=== PATIENT | male | born 1985 | race American Indian/Alaskan Native ===

== ENCOUNTER 2021-03-07 13:00 | Inpatient (IN) | payer SELFPAY ==
--- NOTE | 2021-03-07 14:54 | Event Note ---
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 -- this was last week. He comes in today to see if bp is down so he can work. He did not see pcp No hx HTN pmh none psh none rx none cig smoker He does not know mom/dad med history He denies cp or sob. bp right 237/142 (172) and left 227/142 (181) This initial assessment/diagnostic orders/clinical plan/treatment(s) is/are subject to change based on patients health status, clinical progression and re- assessment by fellow clinical providers in the ED. Further treatment and workup at subsequent clinical providers discretion. Patient/guardian urged not to elope from the ED as their condition may be serious if not clinically assessed and managed. Initial orders include: ro kidney dysfunction/end organ disease
--- NOTE | 2021-03-07 15:36 | XRay Report ---
CHEST 2 VIEWS INDICATION / CLINICAL INFORMATION: Hypertension. COMPARISON: None available. FINDINGS: SUPPORT DEVICES: None. HEART / MEDIASTINUM: No significant abnormality. LUNGS / PLEURA: No significant pulmonary or pleural abnormality. No pneumothorax. ADDITIONAL FINDINGS: No significant additional findings. IMPRESSION: 1. No acute findings. Signer Name: Aman Romo MD Signed: 03/07/2021 3:32 PM Workstation Name: [id number]
[2021-03-07 15:51] LABS: Basophils # (Auto) 0.1 K/mm3 (0.0-0.1); Basophils % (Auto) 0.7 % (0.0-1.8); Eosinophils # (Auto) 0.4 K/mm3 (0.0-0.4); Eosinophils % (Auto) 3.6 % (0.0-4.3); Lymphocytes # (Auto) 2.9 K/mm3 (1.2-5.4); Lymphocytes % (Auto) 27.4 % (13.4-35.0); Mean Corpuscular HGB Conc 33 % (32-34); Mean Corpuscular Volume 91 fl (84-94); Monocytes # (Auto) 0.8 K/mm3 (0.0-0.8); Monocytes % (Auto) 7.8 % (0.0-7.3); Platelet Count 205 K/mm3 (140-440); Red Blood Count 6.64 M/mm3 (3.65-5.03); Red Cell Distribution Width 14.7 % (13.2-15.2)
[2021-03-07 16:00] LABS: Hematocrit 60.2 % (35.5-45.6)
[2021-03-07 16:13] LABS: Albumin 4.2 g/dL (3.9-5); Calcium 9.7 mg/dL (8.4-10.2)
[2021-03-07] MEDS ORDERED: SODIUM CHLORIDE 0.9% 1000 ML 1,000 ML IV ONE (16:28)
[2021-03-07] MEDS ORDERED: niCARdipine DRIP 40 MG/200 ML BAG IV SCH (16:40)
[2021-03-07 17:14] LABS: INR 1.02 (0.87-1.13)
[2021-03-07 17:15] LABS: Partial Thromboplastin Time 29.6 Sec. (24.2-36.6)
[2021-03-07 17:21] LABS: Alanine Aminotransferase 18 units/L (7-56); Albumin 4.6 g/dL (3.9-5)
[2021-03-07 17:22] LABS: Bilirubin,Direct < 0.2 mg/dL (0-0.2)
--- NOTE | 2021-03-07 17:55 | Emergency Department Report ---
HPI - General Chief Complaint: High BP Time Seen by Provider: 03/07/21 14:51 - HPI HPI: 35-year-old male with no known past medical history presents today at the request of a medical provider that he saw 3 days ago due to significantly elevated blood pressure. The patient states that he was trying to apply for a new job and had to have a drug screen and medical evaluation. 3 days ago when he had his medical evaluation he was noted to have a severely high blood pressure (patient does not remember the values) but he was told he could not be medically cleared and that he needed to go to the emergency room given the degree of his elevated blood pressure. He says he had to take care of some things before coming but he came today for further evaluation of his elevated blood pressure. He denies experiencing any new physical symptoms or complaints whatsoever. He denies any recent headaches, vision change, fever, neck pain/stiffness, chest pain, shortness of breath, cough, abdominal pain, nausea/vomiting, dysuria, focal weakness, sensory changes, or any other complaints. ED Past Medical Hx - Past Medical History Previous Medical History?: No - Surgical History Past Surgical History?: No - Social History Smoking Status: Never Smoker Substance Use Type: Alcohol ED Review of Systems ROS: Stated complaint: BLOOD PRESSURE CHECK Other details as noted in HPI Constitutional: denies: chills, fever Eyes: denies: eye pain, vision change ENT: denies: throat pain, congestion Respiratory: denies: cough, shortness of breath Cardiovascular: denies: chest pain, palpitations, edema, syncope Endocrine: denies: excessive sweating, flushing, increased hunger, increased thirst Gastrointestinal: denies: abdominal pain, nausea, vomiting, diarrhea Genitourinary: denies: dysuria, frequency Musculoskeletal: denies: back pain, joint swelling Skin: denies: rash, lesions Neurological: denies: headache, weakness, numbness, paresthesias Hematological/Lymphatic: denies: easy bleeding, easy bruising Physical Exam - Physical Exam Vital Signs: Vital Signs 03/07/21 03/07/21 03/07/21 14:50 16:28 16:44 Temperature 98.1 F Pulse Rate 78 80 Respiratory 16 19 Rate Blood Pressure 234/158 186/118 Blood Pressure 227/142 [Right] O2 Sat by Pulse 98 97 98 Oximetry 09/03/07/21 03/07/21 16:46 16:55 17:00 Temperature Pulse Rate 77 Respiratory 18 17 Rate Blood Pressure 178/128 Blood Pressure [Right] O2 Sat by Pulse 94 98 96 Oximetry 03/07/21 03/07/21 17:16 17:30 Temperature Pulse Rate 91 H Respiratory 13 Rate Blood Pressure 178/128 179/119 Blood Pressure [Right] O2 Sat by Pulse 98 96 Oximetry Physical Exam: GENERAL: Well developed and well nourished. No acute distress HEAD: Normocephalic. No obvious signs of trauma. ENT: Dry mucous membranes. EYES: Extraocular movements are intact. Pupils are equal round and reactive to light bilaterally NECK: Supple. Full ROM is intact. Trachea is midline. LUNGS: Nonlabored breathing. Equal chest rise bilaterally. Clear to auscultation bilaterally. CARDIOVASCULAR: Regular rate and rhythm. No murmurs or rubs. VASCULAR: Cap refill < 2 seconds ABDOMEN: Abdomen is soft and nondistended. There is no significant tenderness, guarding or rebound. SKIN: Skin is warm and dry NEURO: Patient is awake, alert, and oriented. tip cutter II-XII grossly intact. No focal deficits. Normal motor and sensory exam throughout. Normal speech. MUSCULOSKELETAL: No obvious deformities. No significant tenderness. Normal ROM throughout. BACK/SPINE: No midline tenderness or step-offs of the C/T/L spine. No costo vertebral angle tenderness. ED Course Vital Signs 03/07/21 03/07/21 03/07/21 14:50 16:28 16:44 Temperature 98.1 F Pulse Rate 78 80 Respiratory 16 19 Rate Blood Pressure 234/158 186/118 Blood Pressure 227/142 [Right] O2 Sat by Pulse 98 97 98 Oximetry 03/07/21 03/07/21 03/07/21 16:46 16:55 17:00 Temperature Pulse Rate 77 Respiratory 18 17 Rate Blood Pressure 178/128 Blood Pressure [Right] O2 Sat by Pulse 94 98 96 Oximetry 03/07/21 03/07/21 17:16 17:30 Temperature Pulse Rate 91 H Respiratory 13 Rate Blood Pressure 178/128 179/119 Blood Pressure [Right] O2 Sat by Pulse 98 96 Oximetry ED Medical Decision Making - Lab Data Result diagrams: 03/08/21 04:29 03/08/21 04:29 Lab Results 03/07/21 03/07/2121 Range/Units 15:06 15:06 16:39 WBC 10.7 (4.5-11.0) K/mm3 RBC 6.64 H (3.65-5.03) M/mm3 Hgb 20.0 H (11.8-15.2) gm/dl Hct 60.2 H* (35.5-45.6) % MCV 91 (84-94) fl MCH 30 (28-32) pg MCHC 33 (32-34) % RDW 14.7 (13.2-15.2) % Plt Count 205 (140-440) K/mm3 Lymph % (Auto) 27.4 (13.4-35.0) % [place] % (Auto) 7.8 H (0.0-7.3) % Eos % (Auto) 3.6 (0.0-4.3) % Baso % (Auto) 0.7 (0.0-1.8) % Lymph # (Auto) 2.9 (1.2-5.4) K/mm3 [place] # (Auto) 0.8 (0.0-0.8) K/mm3 Eos # (Auto) 0.4 (0.0-0.4) K/mm3 Baso # (Auto) 0.1 (0.0-0.1) K/mm3 Seg Neutrophils % 60.5 (40.0-70.0) % Seg Neutrophils # 6.5 (1.8-7.7) K/mm3 PT (12.2-14.9) Sec. INR (0.87-1.13) APTT (24.2-36.6) Sec. Sodium 140 (137-145) mmol/L Potassium 4.0 (3.6-5.0) mmol/L Chloride 100.0 (98-107) mmol/L Carbon Dioxide 29 (22-30) mmol/L Anion Gap 15 mmol/L BUN 19 (9-20) mg/dL Creatinine 1.7 H (0.8-1.3) mg/dL Estimated GFR 56 ml/min BUN/Creatinine Ratio 11 % Glucose 103 H (75-100) mg/dL Calcium 9.7 (8.4-10.2) mg/dL Magnesium (1.7-2.3) mg/dL Total Bilirubin 0.40 0.40 (0.1-1.2) mg/dL Direct Bilirubin < 0.2 (0-0.2) mg/dL Indirect Bilirubin 0.2 mg/dL AST 19 17 (5-40) units/L ALT 17 18 (7-56) units/L Alkaline Phosphatase 97 103 (35-129) units/L Troponin T (0.00-0.029) ng/mL NT-Pro-B Natriuret Pep (0-450) pg/mL Total Protein 7.6 7.2 (6.3-8.2) g/dL Albumin 4.2 4.6 (3.9-5) g/dL Albumin/Globulin Ratio 1.2 1.8 % Urine Color (Yellow) Urine Turbidity (Clear) Urine pH (5.0-7.0) Ur Specific [place] (1.003-1.030) Urine Protein (Negative) mg/dL Urine Glucose (UA) (Negative) mg/dL Urine Ketones (Negative) mg/dL Urine Blood (Negative) Urine Nitrite (Negative) Urine Bilirubin (Negative) Urine Urobilinogen (<2.0) mg/dL Ur Leukocyte Esterase (Negative) Urine WBC (Auto) (0.0-6.0) /HPF Urine RBC (Auto) (0.0-6.0) /HPF U Epithel Cells (Auto) (0-13.0) /HPF Blood Type Antibody Screen 03/07/21 03/07/21 03/07/21 Range/Units 16:39 16:39 16:39 WBC (4.5-11.0) K/mm3 RBC (3.65-5.03) M/mm3 Hgb (11.8-15.2) gm/dl Hct (35.5-45.6) % MCV (84-94) fl MCH (28-32) pg MCHC (32-34) % RDW (13.2-15.2) % Plt Count (140-440) K/mm3 Lymph % (Auto) (13.4-35.0) % [place] % (Auto) (0.0-7.3) % Eos % (Auto) (0.0-4.3) % Baso % (Auto) (0.0-1.8) % Lymph # (Auto) (1.2-5.4) K/mm3 [place] # (Auto) (0.0-0.8) K/mm3 Eos # (Auto) (0.0-0.4) K/mm3 Baso # (Auto) (0.0-0.1) K/mm3 Seg Neutrophils % (40.0-70.0) % Seg Neutrophils # (1.8-7.7) K/mm3 PT 14.0 (12.2-14.9) Sec. INR 1.02 (0.87-1.13) APTT 29.6 (24.2-36.6) Sec. Sodium (137-145) mmol/L Potassium (3.6-5.0) mmol/L Chloride (98-107) mmol/L Carbon Dioxide (22-30) mmol/L Anion Gap mmol/L BUN (9-20) mg/dL Creatinine (0.8-1.3) mg/dL Estimated GFR ml/min BUN/Creatinine Ratio % Glucose (75-100) mg/dL Calcium (8.4-10.2) mg/dL Magnesium 2.20 (1.7-2.3) mg/dL Total Bilirubin (0.1-1.2) mg/dL Direct Bilirubin (0-0.2) mg/dL Indirect Bilirubin mg/dL AST (5-40) units/L ALT (7-56) units/L Alkaline Phosphatase (35-129) units/L Troponin T < 0.010 (0.00-0.029) ng/mL NT-Pro-B Natriuret Pep 19.47 (0-450) pg/mL Total Protein (6.3-8.2) g/dL Albumin (3.9-5) g/dL Albumin/Globulin Ratio % Urine Color (Yellow) Urine Turbidity (Clear) Urine pH (5.0-7.0) Ur Specific [place] (1.003-1.030) Urine Protein (Negative) mg/dL Urine Glucose (UA) (Negative) mg/dL Urine Ketones (Negative) mg/dL Urine Blood (Negative) Urine Nitrite (Negative) Urine Bilirubin (Negative) Urine Urobilinogen (<2.0) mg/dL Ur Leukocyte Esterase (Negative) Urine WBC (Auto) (0.0-6.0) /HPF Urine RBC (Auto) (0.0-6.0) /HPF U Epithel Cells (Auto) (0-13.0) /HPF Blood Type B POSITIVE Antibody Screen Negative 03/07/21 03/07/21 Range/Units 17:38 Unknown WBC (4.5-11.0) K/mm3 RBC (3.65-5.03) M/mm3 Hgb 19.0 H (11.8-15.2) gm/dl Hct 55.6 H (35.5-45.6) % MCV (84-94) fl MCH (28-32) pg MCHC (32-34) % RDW (13.2-15.2) % Plt Count (140-440) K/mm3 Lymph % (Auto) (13.4-35.0) % [place] % (Auto) (0.0-7.3) % Eos % (Auto) (0.0-4.3) % Baso % (Auto) (0.0-1.8) % Lymph # (Auto) (1.2-5.4) K/mm3 [place] # (Auto) (0.0-0.8) K/mm3 Eos # (Auto) (0.0-0.4) K/mm3 Baso # (Auto) (0.0-0.1) K/mm3 Seg Neutrophils % (40.0-70.0) % Seg Neutrophils # (1.8-7.7) K/mm3 PT (12.2-14.9) Sec. INR (0.87-1.13) APTT (24.2-36.6) Sec. Sodium (137-145) mmol/L Potassium (3.6-5.0) mmol/L Chloride (98-107) mmol/L Carbon Dioxide (22-30) mmol/L Anion Gap mmol/L BUN (9-20) mg/dL Creatinine (0.8-1.3) mg/dL Estimated GFR ml/min BUN/Creatinine Ratio % Glucose (75-100) mg/dL Calcium (8.4-10.2) mg/dL Magnesium (1.7-2.3) mg/dL Total Bilirubin (0.1-1.2) mg/dL Direct Bilirubin (0-0.2) mg/dL Indirect Bilirubin mg/dL AST (5-40) units/L ALT (7-56) units/L Alkaline Phosphatase (35-129) units/L Troponin T (0.00-0.029) ng/mL NT-Pro-B Natriuret Pep (0-450) pg/mL Total Protein (6.3-8.2) g/dL Albumin (3.9-5) g/dL Albumin/Globulin Ratio % Urine Color Straw (Yellow) Urine Turbidity Clear (Clear) Urine pH 6.0 (5.0-7.0) Ur Specific [place] 1.009 (1.003-1.030) Urine Protein 100 mg/dl (Negative) mg/dL Urine Glucose (UA) Neg (Negative) mg/dL Urine Ketones Neg (Negative) mg/dL Urine Blood Sm (Negative) Urine Nitrite Neg (Negative) Urine Bilirubin Neg (Negative) Urine Urobilinogen < 2.0 (<2.0) mg/dL Ur Leukocyte Esterase Neg (Negative) Urine WBC (Auto) 1.0 (0.0-6.0) /HPF Urine RBC (Auto) 2.0 (0.0-6.0) /HPF U Epithel Cells (Auto) < 1.0 (0-13.0) /HPF Blood Type Antibody Screen - EKG Data -: EKG Interpreted by Me - EKG Data When compared to previous EKG there are: previous EKG unavailable 03/07/21 20:03 Normal sinus rhythm. Normal axis. Normal intervals. No ectopy. There is approximately [address] elevation seen only in lead V2. There are inverted T waves noted in leads II, III, and aVF without ST depressions. - Radiology Data Radiology results: report reviewed - Medical Decision Making 35-year-old male with no past medical history presents at the advice of medical provider he saw for a medical screening exam due to significantly elevated blood pressure. Patient has no symptoms or complaints of any kind. However, on my assessment, he is noted to have severely elevated blood pressure of 234/158. The remainder of his vital signs are within normal limits. His physical exam is unremarkable. Labs were drawn before I was able to interview and examine the patient and have partially returned revealing significantly elevated hemoglobin of 20.0. All other cell lines are within normal limits. We will follow up the remainder of the labs which will include broad work-up and initiate blood pressure control with a Cardene drip given that the patient's blood pressure is at a dangerously high level. We will give 1 L of IV fluids for now The remainder of the labs have resulted and reveal elevated creatinine of 1.7 from unknown baseline which is consistent with acute kidney injury or undiagnosed CKD. Troponin and BNP are within normal limits. With this lab abnormality, the patient meets criteria for hypertensive emergency. On repeat assessment shortly after initiation of the Cardene drip, the patient's blood pressure has been reduced to the 1760s-180s systolic. He remains asymptomatic. Given the patient's hematologic abnormality and concern for possible need for further intervention such as phlebotomy/pheresis, a call was made to [facility] in order to speak with an on-call bed worker regarding possible transfer to facility capable of therapeutic phlebotomy. The patient was assessed several times and his blood pressure remains stable and he remains asymptomatic. In addition, repeat CBC was sent in case of a lab error but it reveals the patient's hemoglobin is in fact 19.5-20. Chest x-ray reveals no acute abnormalities. At 7:50 PM I spoke with Dr. Garcia of Hematology/Oncology at [facility] regarding the case, including my concern that the patient may require therapeutic phlebotomy which is unavailable at our facility. She agrees with our current management including initiation of a Cardene drip for strict blood pressure control. She stated that given that the patient is asymptomatic it is unlikely that he has a hyperviscosity syndrome, and he is unlikely to need phlebotomy/pheresis. When I expressed concern that the patient's elevated H/H may be what is causing his hypertensive emergency, she stated that elevated H/H would not cause elevated BP, but that both features are more likely manifestations of the same still to be identified disease/pathology. She states that he definitely needs admission for further work-up but does not require transfer. She recommends to hold off on giving further fluids at this time so as to not cause volume overload but to instead focus on strictly controlling the patient's blood pressure. The patient will therefore be admitted to the on- call hospitalist for further work-up and management. All this was discussed with the patient who expressed understanding and agreement with the plan of care. Critical Care Time: Yes Critical care time in (mins) excluding proc time.: 40 Critical care attestation.: If time is entered above; I have spent that time in minutes in the direct care o f this critically ill patient, excluding procedure time. Critical care time was spent in the evaluation/assessment, work-up, and management of hypertensive emergency requiring initiation of a Cardene drip as well as significantly elevated hemoglobin requiring consultation with specialist as well as frequent reevaluation and reassessment. ED Disposition Clinical Impression: MICHEAL (acute kidney injury), Hypertensive emergency, Polycythemia Disposition: 09 ADMITTED INPATIENT Is pt being admited?: Yes Condition: Serious
[2021-03-07 17:57] LABS: Hematocrit 55.6 % (35.5-45.6)
[2021-03-07 19:51] LABS: Bilirubin,Urine NEG (Negative); Blood,Urine SM (Negative); Color,Urine Straw (Yellow); Urobilinogen,Urine < 2.0 mg/dL (<2.0)
--- NOTE | 2021-03-07 22:15 | History and Physical Report ---
History of Present Illness Date of examination: 03/07/21 Date of admission: 03/07/2021 Chief complaint: Elevated Blood Pressure History of present illness: 35-year-old male with no known past medical history presents to the emergency room today after being encouraged to report to the emergency room by his primary care physician for elevated blood pressure. Patient indicates he has been trying to apply for a new job and went for screening was discovered to have had significantly elevated blood pressure. He denies any history of hypertension. There is no family history of hypertension except for diabetes mellitus in grandmother. Denies any chest pain or shortness of breath, no headache or dizziness, no diaphoresis. Denies any nausea vomiting, no abdominal pain. Denies any fever or chills, denies any sick contacts and no recent travel. Denies any contact with anyone with COVID-19. Patient admits that he has not been vaccinated against COVID-19. Upon arrival in the emergency room, blood pressure was significantly elevated with systolic of 227 and diastolic of 142. Patient was subsequently started on Cardene drip. Work-up in the emergency room today, labs reveals significantly elevated hemoglobin of 20 and hematocrit of 60.2. Creatinine was 1.7 Chest x-ray showed no acute findings. Past History Past Medical History: No medical history Past Surgical History: No surgical history Social history: smoking (Current daily smoker), other (Uses Marijuana) Family history: diabetes (Grand Mother) Medications and Allergies Allergies Allergy/AdvReac Type Severity Reaction Status Date / Time No Known Allergies Allergy Unverified 03/07/21 14:51 Active Meds: Active Medications Acetaminophen (Acetaminophen 325 Mg Tab) 650 mg PO Q6H PRN PRN Reason: Pain MILD(1-3)/Fever >100.5/HOLLINS Heparin Sodium (Porcine) (Heparin 5,000 Unit/1 Ml Vial) 5,000 unit SUB-Q Q8HR DEBBIE Nicardipine/Sodium Chloride (Cardene Drip 40 Mg/200 Ml) 40 mg in 200 mls @ 25 mls/hr IV TITR DEBBIE; Protocol Last Admin: 03/07/21 17:24 Dose: 5 mg/hr, 25 mls/hr Documented by: Magnesium Hydroxide (Magnesium Hydroxide (Mom) Oral Liqd Udc) 30 ml PO Q4H PRN PRN Reason: Constipation Morphine Sulfate (Morphine 2 Mg/1 Ml Inj) 2 mg IV Q4H PRN PRN Reason: Pain, Moderate (4-6) Morphine Sulfate (Morphine 4 Mg/1 Ml Inj) 4 mg IV Q4H PRN PRN Reason: Pain , Severe (7-10) Ondansetron HCl (Ondansetron 4 Mg/2 Ml Inj) 4 mg IV Q8H PRN PRN Reason: Nausea And Vomiting Sodium Chloride (Sodium Chloride 0.9% 10 Ml Flush Syringe) 10 ml IV BID DEBBIE Sodium Chloride (Sodium Chloride 0.9% 10 Ml Flush Syringe) 10 ml IV PRN PRN PRN Reason: LINE FLUSH Review of Systems Constitutional: no fever, no chills Ears, nose, mouth and throat: no nasal congestion, no sore throat Cardiovascular: no chest pain, no palpitations Respiratory: no cough, no shortness of breath Gastrointestinal: no abdominal pain, no nausea, no vomiting, no diarrhea Genitourinary Male: no dysuria, no hematuria, no flank pain Musculoskeletal: no neck pain, no low back pain Integumentary: no rash, no pruritis Neurological: no headaches, no confusion Psychiatric: no anxiety, no depression Endocrine: no polyphagia, no polydipsia, no polyuria, no nocturia Exam - Constitutional Vitals: Temp Pulse Resp BP Pulse Ox 98.2 F 96 H 15 170/103 96 03/07/21 19:40 03/07/21 19:40 03/07/21 19:40 03/07/21 19:40 03/07/21 19:40 General appearance: Present: no acute distress, well-nourished - EENT Eyes: Present: PERRL, EOM intact. Absent: scleral icterus ENT: hearing intact, clear oral mucosa, dentition normal - Neck Neck: Present: supple, normal ROM - Respiratory Respiratory effort: normal Respiratory: bilateral: CTA - Cardiovascular Rhythm: regular Heart Sounds: Present: S1 & S2. Absent: gallop, systolic murmur, diastolic murmur, rub, click - Extremities Extremities: no ischemia, pulses intact, pulses symmetrical, No edema, normal temperature, normal color, Full ROM Peripheral Pulses: within normal limits - Abdominal General gastrointestinal: Present: soft, non-tender, non-distended, normal bowel sounds. Absent: mass - Integumentary Integumentary: Present: clear, warm, dry. Absent: rash - Musculoskeletal Musculoskeletal: strength equal bilaterally - Psychiatric Psychiatric: appropriate mood/affect, intact judgment & insight, memory intact - Neurologic Neurologic: CNII-XII intact, no focal deficits, moves all extremities HEART Score - HEART Score Troponin: Troponin T < 0.010 ng/mL (0.00-0.029) 03/07/21 16:39 Results - Labs CBC & Chem 7: 03/07/21 17:38 03/07/21 15:06 Labs: Abnormal lab results 03/07/21 03/07/21 03/07/21 Range/Units 15:06 15:06 17:38 RBC 6.64 H (3.65-5.03) M/mm3 Hgb 20.0 H 19.0 H (11.8-15.2) gm/dl Hct 60.2 H* 55.6 H (35.5-45.6) % [place] % (Auto) 7.8 H (0.0-7.3) % Creatinine 1.7 H (0.8-1.3) mg/dL Glucose 103 H (75-100) mg/dL Assessment and Plan - Patient Problems (1) Hypertensive emergency Current Visit: Yes Status: Acute Plan to address problem: Patient has no known history of hypertension. He is currently placed on Cardene drip. Will monitor vital signs closely. (2) Polycythemia Current Visit: Yes Status: Acute Plan to address problem: Please consult to heme-onc for evaluation and recommendations. (3) MICHEAL (acute kidney injury) Current Visit: Yes Status: Acute Plan to address problem: Baseline creatinine is unknown. We will place consult to nephrology for evaluation. (4) DVT prophylaxis Current Visit: Yes Status: Acute Plan to address problem: Patient placed on subcutaneous heparin. (5) Full code status Current Visit: Yes Status: Acute Plan to address problem: Patient is full code.
[2021-03-07] MEDS ORDERED: MORPHINE 4 MG/1 ML INJ IV PRN (22:30)
[2021-03-07] MEDS ORDERED: MAGNESIUM HYDROXIDE (MOM) ORAL LIQD UDC PO PRN (22:30)
[2021-03-07] MEDS ORDERED: ACETAMINOPHEN 325 MG TAB PO PRN (22:30)
[2021-03-07] MEDS ORDERED: MORPHINE 2 MG/1 ML INJ IV PRN (22:30)
[2021-03-07] MEDS ORDERED: ONDANSETRON 4 MG/2 ML INJ IV PRN (22:30)
[2021-03-08 05:01] LABS: Basophils # (Auto) 0.1 K/mm3 (0.0-0.1); Basophils % (Auto) 0.6 % (0.0-1.8); Eosinophils # (Auto) 0.4 K/mm3 (0.0-0.4); Eosinophils % (Auto) 2.8 % (0.0-4.3); Hematocrit 56.6 % (35.5-45.6); Hemoglobin 18.8 gm/dl (11.8-15.2); Lymphocytes # (Auto) 2.6 K/mm3 (1.2-5.4); Lymphocytes % (Auto) 20.2 % (13.4-35.0); Mean Corpuscular HGB Conc 33 % (32-34); Mean Corpuscular Volume 90 fl (84-94); Monocytes # (Auto) 0.9 K/mm3 (0.0-0.8); Monocytes % (Auto) 7.2 % (0.0-7.3); Platelet Count 192 K/mm3 (140-440); Red Blood Count 6.29 M/mm3 (3.65-5.03); Red Cell Distribution Width 14.7 % (13.2-15.2)
[2021-03-08 05:14] LABS: INR 1.07 (0.87-1.13)
[2021-03-08 05:21] LABS: BUN/Creatinine Ratio 10; Blood Urea Nitrogen 16 mg/dL (9-20); Calcium 9.5 mg/dL (8.4-10.2); Hemolysis Index 10
[2021-03-08] MEDS: HEPARIN 5,000 UNIT/1 ML VIAL SUB-Q SCH ×3 (06:45→21:38)
[2021-03-08] MEDS ORDERED: NIFEdipine XL 30 MG TAB PO SCH ×2 (10:00)
--- NOTE | 2021-03-08 10:05 | Hem/Onc Consultation ---
History of Present Illness - Reason for Consult Consult date: 03/08/21 polycythemia - History of Present Illness Heme televisit consult CPT: 64446 Dx: polycythemia This is a 35yo male in with complaints of elevated blood pressure during a routine physical exam Currently works as a fork p d driver Pt denies any medical history Doesn't know if he's had high blood pressure in the past Denies covid infection, or covid vaccination No family history, except diabetes in grandmother + marijuana smoker occasionally Elevated hgb and hematocrit on admission Hypertensive emergency on cardene drip --continues with high blood pressure DATA REVIEWED BELOW WBC 12 Hgb 18.8 Hct 56.6 Plt 192 IMP: 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 Hypertension could also be related to polcythemia REC/PLAN: Labs to include jak2 mutation and epo Frequent lab draws (phlebotomy) to decrease h/h, since therapeautic phlebotomy unavailable Recommend outpatient sleep study to assess for sleep apnea Laboratory Last Values WBC 12.9 K/mm3 (4.5-11.0) H 03/08/21 04:29 RBC 6.29 M/mm3 (3.65-5.03) H 03/08/21 04:29 Hgb 18.8 gm/dl (11.8-15.2) H 03/08/21 04:29 Hct 56.6 % (35.5-45.6) H 03/08/21 04:29 MCV 90 fl (84-94) 03/08/21 04:29 MCH 30 pg (28-32) 03/08/21 04:29 MCHC 33 % (32-34) 03/08/21 04:29 RDW 14.7 % (13.2-15.2) 03/08/21 04:29 Plt Count 192 K/mm3 (140-440) 03/08/21 04:29 Lymph % (Auto) 20.2 % (13.4-35.0) 03/08/21 04:29 Jones % (Auto) 7.2 % (0.0-7.3) 03/08/21 04:29 Eos % (Auto) 2.8 % (0.0-4.3) 03/08/21 04:29 Baso % (Auto) 0.6 % (0.0-1.8) 03/08/21 04:29 Lymph # (Auto) 2.6 K/mm3 (1.2-5.4) 03/08/21 04:29 Jones # (Auto) 0.9 K/mm3 (0.0-0.8) H 03/08/21 04:29 Eos # (Auto) 0.4 K/mm3 (0.0-0.4) 03/08/21 04:29 Baso # (Auto) 0.1 K/mm3 (0.0-0.1) 03/08/21 04:29 Seg Neutrophils % 69.2 % (40.0-70.0) 03/08/21 04:29 Seg Neutrophils # 8.9 K/mm3 (1.8-7.7) H 03/08/21 04:29 PT 14.5 Sec. (12.2-14.9) 03/08/21 04:29 INR 1.07 (0.87-1.13) 03/08/21 04:29 APTT 29.6 Sec. (24.2-36.6) 03/07/21 16:39 Sodium 140 mmol/L (137-145) 03/08/21 04:29 Potassium 4.1 mmol/L (3.6-5.0) 03/08/21 04:29 Chloride 101.9 mmol/L (98-107) 03/08/21 04:29 Carbon Dioxide 31 mmol/L (22-30) H 03/08/21 04:29 Anion Gap 11 mmol/L 03/08/21 04:29 BUN 16 mg/dL (9-20) 03/08/21 04:29 Creatinine 1.6 mg/dL (0.8-1.3) H 03/08/21 04:29 Estimated GFR > 60 ml/min 03/08/21 04:29 BUN/Creatinine Ratio 10 % 03/08/21 04:29 Glucose 102 mg/dL (75-100) H 03/08/21 04:29 Calcium 9.5 mg/dL (8.4-10.2) 03/08/21 04:29 Magnesium 2.20 mg/dL (1.7-2.3) 03/07/21 16:39 Total Bilirubin 0.40 mg/dL (0.1-1.2) 03/07/21 16:39 Direct Bilirubin < 0.2 mg/dL (0-0.2) 03/07/21 16:39 Indirect Bilirubin 0.2 mg/dL 03/07/21 16:39 AST 17 units/L (5-40) 03/07/21 16:39 ALT 18 units/L (7-56) 03/07/21 16:39 Alkaline Phosphatase 103 units/L (35-129) 03/07/21 16:39 Troponin T < 0.010 ng/mL (0.00-0.029) 03/07/21 16:39 NT-Pro-B Natriuret Pep 19.47 pg/mL (0-450) 03/07/21 16:39 Total Protein 7.2 g/dL (6.3-8.2) 03/07/21 16:39 Albumin 4.6 g/dL (3.9-5) 03/07/21 16:39 Albumin/Globulin Ratio 1.8 % 03/07/21 16:39 Urine Color Straw (Yellow) 03/07/21 Unknown Urine Turbidity Clear (Clear) 03/07/21 Unknown Urine pH 6.0 (5.0-7.0) 03/07/21 Unknown Ur Specific [place] 1.009 (1.003-1.030) 03/07/21 Unknown Urine Protein 100 mg/dl mg/dL (Negative) 03/07/21 Unknown Urine Glucose (UA) Neg mg/dL (Negative) 03/07/21 Unknown Urine Ketones Neg mg/dL (Negative) 03/07/21 Unknown Urine Blood Sm (Negative) 03/07/21 Unknown Urine Nitrite Neg (Negative) 03/07/21 Unknown Urine Bilirubin Neg (Negative) 03/07/21 Unknown Urine Urobilinogen < 2.0 mg/dL (<2.0) 03/07/21 Unknown Ur Leukocyte Esterase Neg (Negative) 03/07/21 Unknown Urine WBC (Auto) 1.0 /HPF (0.0-6.0) 03/07/21 Unknown Urine RBC (Auto) 2.0 /HPF (0.0-6.0) 03/07/21 Unknown U Epithel Cells (Auto) < 1.0 /HPF (0-13.0) 03/07/21 Unknown Blood Type B POSITIVE 03/07/21 16:39 Antibody Screen Negative 03/07/21 16:39 Past History Past Medical History: No medical history Past Surgical History: No surgical history Social history: smoking (Current daily smoker), other (Uses Marijuana) Family history: diabetes (Grand Mother) Medications and Allergies Allergies Allergy/AdvReac Type Severity Reaction Status Date / Time No Known Allergies Allergy Unverified 03/07/21 14:51 Active Meds: Active Medications Acetaminophen (Acetaminophen 325 Mg Tab) 650 mg PO Q6H PRN PRN Reason: Pain MILD(1-3)/Fever >100.5/HOLLINS Heparin Sodium (Porcine) (Heparin 5,000 Unit/1 Ml Vial) 5,000 unit SUB-Q Q8HR DEBBIE Last Admin: 03/08/21 06:45 Dose: 5,000 unit Documented by: Nicardipine/Sodium Chloride (Cardene Drip 40 Mg/200 Ml) 40 mg in 200 mls @ 25 mls/hr IV TITR DEBBIE; Protocol Last Titration: 03/08/21 00:35 Dose: 0 mg/hr, 0 mls/hr Documented by: Magnesium Hydroxide (Magnesium Hydroxide (Mom) Oral Liqd Udc) 30 ml PO Q4H PRN PRN Reason: Constipation Morphine Sulfate (Morphine 2 Mg/1 Ml Inj) 2 mg IV Q4H PRN PRN Reason: Pain, Moderate (4-6) Morphine Sulfate (Morphine 4 Mg/1 Ml Inj) 4 mg IV Q4H PRN PRN Reason: Pain , Severe (7-10) Nifedipine (Nifedipine Xl 30 Mg Tab) 30 mg PO QDAY DEBBIE Ondansetron HCl (Ondansetron 4 Mg/2 Ml Inj) 4 mg IV Q8H PRN PRN Reason: Nausea And Vomiting Sodium Chloride (Sodium Chloride 0.9% 10 Ml Flush Syringe) 10 ml IV BID DEBBIE Sodium Chloride (Sodium Chloride 0.9% 10 Ml Flush Syringe) 10 ml IV PRN PRN PRN Reason: LINE FLUSH Exam - Constitutional Vitals: Last Vital Signs Temp 98 F 03/08/21 08:08 Pulse 86 03/08/21 08:08 Resp 14 03/08/21 08:12 BP 159/103 03/08/21 08:08 Pulse Ox 96 03/08/21 08:12 Results - Labs lab Results: Laboratory Results - last 24 hr 03/07/21 03/07/21 03/07/21 15:06 15:06 16:39 WBC 10.7 RBC 6.64 H Hgb 20.0 H Hct 60.2 H* MCV 91 MCH 30 MCHC 33 RDW 14.7 Plt Count 205 Lymph % (Auto) 27.4 Jones % (Auto) 7.8 H Eos % (Auto) 3.6 Baso % (Auto) 0.7 Lymph # (Auto) 2.9 [place] # (Auto) 0.8 Eos # (Auto) 0.4 Baso # (Auto) 0.1 Seg Neutrophils % 60.5 Seg Neutrophils # 6.5 PT INR APTT Sodium 140 Potassium 4.0 Chloride 100.0 Carbon Dioxide 29 Anion Gap 15 BUN 19 Creatinine 1.7 H Estimated GFR 56 BUN/Creatinine Ratio 11 Glucose 103 H Calcium 9.7 Magnesium Total Bilirubin 0.40 0.40 Direct Bilirubin < 0.2 Indirect Bilirubin 0.2 AST 19 17 ALT 17 18 Alkaline Phosphatase 97 103 Troponin T NT-Pro-B Natriuret Pep Total Protein 7.6 7.2 Albumin 4.2 4.6 Albumin/Globulin Ratio 1.2 1.8 Urine Color Urine Turbidity Urine pH Ur Specific [place] Urine Protein Urine Glucose (UA) Urine Ketones Urine Blood Urine Nitrite Urine Bilirubin Urine Urobilinogen Ur Leukocyte Esterase Urine WBC (Auto) Urine RBC (Auto) U Epithel Cells (Auto) Blood Type Antibody Screen 03/07/21 03/07/21 03/07/21 16:39 16:39 16:39 WBC RBC Hgb Hct MCV MCH MCHC RDW Plt Count Lymph % (Auto) Jones % (Auto) Eos % (Auto) Baso % (Auto) Lymph # (Auto) [place] # (Auto) Eos # (Auto) Baso # (Auto) Seg Neutrophils % Seg Neutrophils # PT 14.0 INR 1.02 APTT 29.6 Sodium Potassium Chloride Carbon Dioxide Anion Gap BUN Creatinine Estimated GFR BUN/Creatinine Ratio Glucose Calcium Magnesium 2.20 Total Bilirubin Direct Bilirubin Indirect Bilirubin AST ALT Alkaline Phosphatase Troponin T < 0.010 NT-Pro-B Natriuret Pep 19.47 Total Protein Albumin Albumin/Globulin Ratio Urine Color Urine Turbidity Urine pH Ur Specific [place] Urine Protein Urine Glucose (UA) Urine Ketones Urine Blood Urine Nitrite Urine Bilirubin Urine Urobilinogen Ur Leukocyte Esterase Urine WBC (Auto) Urine RBC (Auto) U Epithel Cells (Auto) Blood Type B POSITIVE Antibody Screen Negative 03/07/21 03/07/21 03/08/21 17:38 Unknown 04:29 WBC 12.9 H RBC 6.29 H Hgb 19.0 H 18.8 H Hct 55.6 H 56.6 H MCV 90 MCH 30 MCHC 33 RDW 14.7 Plt Count 192 Lymph % (Auto) 20.2 [place] % (Auto) 7.2 Eos % (Auto) 2.8 Baso % (Auto) 0.6 Lymph # (Auto) 2.6 [place] # (Auto) 0.9 H Eos # (Auto) 0.4 Baso # (Auto) 0.1 Seg Neutrophils % 69.2 Seg Neutrophils # 8.9 H PT INR APTT Sodium Potassium Chloride Carbon Dioxide Anion Gap BUN Creatinine Estimated GFR BUN/Creatinine Ratio Glucose Calcium Magnesium Total Bilirubin Direct Bilirubin Indirect Bilirubin AST ALT Alkaline Phosphatase Troponin T NT-Pro-B Natriuret Pep Total Protein Albumin Albumin/Globulin Ratio Urine Color Straw Urine Turbidity Clear Urine pH 6.0 Ur Specific [place] 1.009 Urine Protein 100 mg/dl Urine Glucose (UA) Neg Urine Ketones Neg Urine Blood Sm Urine Nitrite Neg Urine Bilirubin Neg Urine Urobilinogen < 2.0 Ur Leukocyte Esterase Neg Urine WBC (Auto) 1.0 Urine RBC (Auto) 2.0 U Epithel Cells (Auto) < 1.0 Blood Type Antibody Screen 03/08/21 03/08/21 04:29 04:29 WBC RBC Hgb Hct MCV MCH MCHC RDW Plt Count Lymph % (Auto) [place] % (Auto) Eos % (Auto) Baso % (Auto) Lymph # (Auto) [place] # (Auto) Eos # (Auto) Baso # (Auto) Seg Neutrophils % Seg Neutrophils # PT 14.5 INR 1.07 APTT Sodium 140 Potassium 4.1 Chloride 101.9 Carbon Dioxide 31 H Anion Gap 11 BUN 16 Creatinine 1.6 H Estimated GFR > 60 BUN/Creatinine Ratio 10 Glucose 102 H Calcium 9.5 Magnesium Total Bilirubin Direct Bilirubin Indirect Bilirubin AST ALT Alkaline Phosphatase Troponin T NT-Pro-B Natriuret Pep Total Protein Albumin Albumin/Globulin Ratio Urine Color Urine Turbidity Urine pH Ur Specific [place] Urine Protein Urine Glucose (UA) Urine Ketones Urine Blood Urine Nitrite Urine Bilirubin Urine Urobilinogen Ur Leukocyte Esterase Urine WBC (Auto) Urine RBC (Auto) U Epithel Cells (Auto) Blood Type Antibody Screen
--- NOTE | 2021-03-08 12:19 | Consultation ---
History of Present Illness - Reason for Consult Consult date: 03/08/21 chronic renal failure, accelerated hypertension Requesting physician: CONNIE SERRANO - History of Present Illness 35-year-old male with no known past medical history presents today at the request of a medical provider that he saw 3 days ago due to significantly elevated blood pressure. The patient states that he was trying to apply for a new job and had to have a drug screen and medical evaluation. 3 days ago when he had his medical evaluation he was noted to have a severely high blood pressu re (patient does not remember the values) but he was told he could not be medically cleared and that he needed to go to the emergency room given the degree of his elevated blood pressure. He says he had to take care of some things before coming but he came today for further evaluation of his elevated blood pressure. He denies experiencing any new physical symptoms or complaints whatsoever. He denies any recent headaches, vision change, fever, neck pain/stiffness, chest pain, shortness of breath, cough, abdominal pain, nausea/vomiting, dysuria, focal weakness, sensory changes, or any other c omplaints. - Past Medical History Previous Medical History?: No - Surgical History Past Surgical History?: No - Social History Smoking Status: Never Smoker Substance Use Type: Alcohol ROS: Stated complaint: BLOOD PRESSURE CHECK Other details as noted in HPI Constitutional: denies: chills, fever Eyes: denies: eye pain, vision change ENT: denies: throat pain, congestion Respiratory: denies: cough, shortness of breath Cardiovascular: denies: chest pain, palpitations, edema, syncope Endocrine: denies: excessive sweating, flushing, increased hunger, increased thirst Gastrointestinal: denies: abdominal pain, nausea, vomiting, diarrhea Genitourinary: denies: dysuria, frequency Musculoskeletal: denies: back pain, joint swelling Skin: denies: rash, lesions Neurological: denies: headache, weakness, numbness, paresthesias Hematological/Lymphatic: denies: easy bleeding, easy bruising Physical Exam: GENERAL: Well developed and well nourished. No acute distress HEAD: Normocephalic. No obvious signs of trauma. ENT: Dry mucous membranes. EYES: Extraocular movements are intact. Pupils are equal round and reactive to light bilaterally NECK: Supple. Full ROM is intact. Trachea is midline. LUNGS: Nonlabored breathing. Equal chest rise bilaterally. Clear to auscultation bilaterally. CARDIOVASCULAR: Regular rate and rhythm. No murmurs or rubs. VASCULAR: Cap refill < 2 seconds ABDOMEN: Abdomen is soft and nondistended. There is no significant tenderness, guarding or rebound. SKIN: Skin is warm and dry NEURO: Patient is awake, alert, and oriented. poly packer and heat sealer II-XII grossly intact. No focal deficits. Normal motor and sensory exam throughout. Normal speech. MUSCULOSKELETAL: No obvious deformities. No significant tenderness. Normal ROM throughout. BACK/SPINE: No midline tenderness or step-offs of the C/T/L spine. No costovertebral angle tenderness. Past History Past Medical History: No medical history Past Surgical History: No surgical history Social history: smoking (Current daily smoker), other (Uses Marijuana) Family history: diabetes (Grand Mother) Medications and Allergies Allergies Allergy/AdvReac Type Severity Reaction Status Date / Time No Known Allergies Allergy Unverified 03/07/21 14:51 Active Meds: Active Medications Acetaminophen (Acetaminophen 325 Mg Tab) 650 mg PO Q6H PRN PRN Reason: Pain MILD(1-3)/Fever >100.5/HOLLINS Heparin Sodium (Porcine) (Heparin 5,000 Unit/1 Ml Vial) 5,000 unit SUB-Q Q8HR [facility] Last Admin: 03/08/21 06:45 Dose: 5,000 unit Documented by: Nicardipine/Sodium Chloride (Cardene Drip 40 Mg/200 Ml) 40 mg in 200 mls @ 25 mls/hr IV TITR DEBBIE; Protocol Last Titration: 03/08/21 00:35 Dose: 0 mg/hr, 0 mls/hr Documented by: Magnesium Hydroxide (Magnesium Hydroxide (Mom) Oral Liqd Udc) 30 ml PO Q4H PRN PRN Reason: Constipation Morphine Sulfate (Morphine 2 Mg/1 Ml Inj) 2 mg IV Q4H PRN PRN Reason: Pain, Moderate (4-6) Morphine Sulfate (Morphine 4 Mg/1 Ml Inj) 4 mg IV Q4H PRN PRN Reason: Pain , Severe (7-10) Nifedipine (Nifedipine Xl 30 Mg Tab) 30 mg PO QDAY [facility] Last Admin: 03/08/21 11:43 Dose: 30 mg Documented by: Ondansetron HCl (Ondansetron 4 Mg/2 Ml Inj) 4 mg IV Q8H PRN PRN Reason: Nausea And Vomiting Sodium Chloride (Sodium Chloride 0.9% 10 Ml Flush Syringe) 10 ml IV BID DEBBIE Last Admin: 03/08/21 11:46 Dose: 10 ml Documented by: Sodium Chloride (Sodium Chloride 0.9% 10 Ml Flush Syringe) 10 ml IV PRN PRN PRN Reason: LINE FLUSH Exam - Vital Signs Vital signs: Vital Signs Temp Pulse Resp BP Pulse Ox 98.1 F 78 16 227/142 98 03/07/21 14:50 03/07/21 14:50 03/07/21 14:50 03/07/21 14:50 03/07/21 14:50 Results - Lab Results 03/08/21 04:29 03/08/21 04:29 Most recent lab results Calcium 9.5 mg/dL (8.4-10.2) 03/08/21 04:29 Magnesium 2.20 mg/dL (1.7-2.3) 03/07/21 16:39 Assessment and Plan Impression: * MICHEAL 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
[2021-03-08] MEDS: cloNIDine 0.1 MG TAB PO SCH ×2 (12:34→21:38)
--- NOTE | 2021-03-08 12:47 | Event Note ---
Date: 03/08/21 ICU consult placed fopr Hypertensive emergency which has now resolved. Pleaser re-consult if needed and thank you so much.
[2021-03-08] MEDS ORDERED: hydrALAZINE 20 MG/1 ML INJ IV PRN (13:02)
--- NOTE | 2021-03-08 13:05 | Progress Note ---
Assessment and Plan Assessment and plan: 35-year-old male with no significant past medical history who presented after elevated blood pressure screening for employment. Found to be in hypertensive emergency and with elevated hemoglobin/hematocrit. #Hypertensive emergency -s/p Cardene gtt -Nifedipine XR 30 mg and clonidine 0.1 mg 2 times daily daily started -As needed blood pressure medications #Hyperviscosity -H&H 18.8/56.6 -Status post IV hydration, may be secondary versus primary -Etiology unknown -Will need outpatient sleep study to assess for sleep apnea -Hematology following, recs appreciated #Acute kidney injury -creatinine 1.6 (baseline unknown) -Renal ultrasound and urine studies ordered -Nephrology consulted and recommends no further treatment at this time, will follow up outpatient in 2 weeks Disposition Plan: Continue medical management Total Time Spent with Patient (Minutes): 20 minutes History Interval history: No acute events overnight. Cardene drip stopped. Patient denies headache, chest pain, and blurred vision. Hospitalist Physical - Physical exam Narrative exam: GENERAL: Well-developed well-nourished. Lying in bed in no acute distress. HEENT: Normocephalic. Atraumatic. NECK: Supple. CHEST/LUNGS: CTAB on room air HEART/CARDIOVASCULAR: RRR. No murmur, rubs or gallops appreciated. ABDOMEN: +BS. NT/ND. SKIN: No rashes noted. NEURO: No focal motor deficit. Follows all commands and is ambulatory. EXTREMITIES: No cyanosis, clubbing or edema. PSYCH: Cooperative. - Constitutional Vitals: Temp Pulse Resp BP Pulse Ox 98 F 69 17 196/123 97 03/08/21 08:08 03/08/21 12:34 03/08/21 12:00 03/08/21 12:34 03/08/21 12:00 General appearance: Present: no acute distress, well-nourished HEART Score - HEART Score Troponin: Troponin T < 0.010 ng/mL (0.00-0.029) 03/07/21 16:39 Results - Labs CBC & Chem 7: 03/08/21 04:29 03/08/21 04:29 Labs: Laboratory Last Values WBC 12.9 K/mm3 (4.5-11.0) H 03/08/21 04:29 RBC 6.29 M/mm3 (3.65-5.03) H 03/08/21 04:29 Hgb 18.8 gm/dl (11.8-15.2) H 03/08/21 04:29 Hct 56.6 % (35.5-45.6) H 03/08/21 04:29 MCV 90 fl (84-94) 03/08/21 04:29 MCH 30 pg (28-32) 03/08/21 04:29 MCHC 33 % (32-34) 03/08/21 04:29 RDW 14.7 % (13.2-15.2) 03/08/21 04:29 Plt Count 192 K/mm3 (140-440) 03/08/21 04:29 Lymph % (Auto) 20.2 % (13.4-35.0) 03/08/21 04:29 [place] % (Auto) 7.2 % (0.0-7.3) 03/08/21 04:29 Eos % (Auto) 2.8 % (0.0-4.3) 03/08/21 04:29 Baso % (Auto) 0.6 % (0.0-1.8) 03/08/21 04:29 Lymph # (Auto) 2.6 K/mm3 (1.2-5.4) 03/08/21 04:29 [place] # (Auto) 0.9 K/mm3 (0.0-0.8) H 03/08/21 04:29 Eos # (Auto) 0.4 K/mm3 (0.0-0.4) 03/08/21 04:29 Baso # (Auto) 0.1 K/mm3 (0.0-0.1) 03/08/21 04:29 Seg Neutrophils % 69.2 % (40.0-70.0) 03/08/21 04:29 Seg Neutrophils # 8.9 K/mm3 (1.8-7.7) H 03/08/21 04:29 PT 14.5 Sec. (12.2-14.9) 03/08/21 04:29 INR 1.07 (0.87-1.13) 03/08/21 04:29 APTT 29.6 Sec. (24.2-36.6) 03/07/21 16:39 Sodium 140 mmol/L (137-145) 03/08/21 04:29 Potassium 4.1 mmol/L (3.6-5.0) 03/08/21 04:29 Chloride 101.9 mmol/L (98-107) 03/08/21 04:29 Carbon Dioxide 31 mmol/L (22-30) H 03/08/21 04:29 Anion Gap 11 mmol/L 03/08/21 04:29 BUN 16 mg/dL (9-20) 03/08/21 04:29 Creatinine 1.6 mg/dL (0.8-1.3) H 03/08/21 04:29 Estimated GFR > 60 ml/min 03/08/21 04:29 BUN/Creatinine Ratio 10 % 03/08/21 04:29 Glucose 102 mg/dL (75-100) H 03/08/21 04:29 Calcium 9.5 mg/dL (8.4-10.2) 03/08/21 04:29 Magnesium 2.20 mg/dL (1.7-2.3) 03/07/21 16:39 Total Bilirubin 0.40 mg/dL (0.1-1.2) 03/07/21 16:39 Direct Bilirubin < 0.2 mg/dL (0-0.2) 03/07/21 16:39 Indirect Bilirubin 0.2 mg/dL 03/07/21 16:39 AST 17 units/L (5-40) 03/07/21 16:39 ALT 18 units/L (7-56) 03/07/21 16:39 Alkaline Phosphatase 103 units/L (35-129) 03/07/21 16:39 Troponin T < 0.010 ng/mL (0.00-0.029) 03/07/21 16:39 NT-Pro-B Natriuret Pep 19.47 pg/mL (0-450) 03/07/21 16:39 Total Protein 7.2 g/dL (6.3-8.2) 03/07/21 16:39 Albumin 4.6 g/dL (3.9-5) 03/07/21 16:39 Albumin/Globulin Ratio 1.8 % 03/07/21 16:39 Urine Color Straw (Yellow) 03/07/21 Unknown Urine Turbidity Clear (Clear) 03/07/21 Unknown Urine pH 6.0 (5.0-7.0) 03/07/21 Unknown Ur Specific [place] 1.009 (1.003-1.030) 03/07/21 Unknown Urine Protein 100 mg/dl mg/dL (Negative) 03/07/21 Unknown Urine Glucose (UA) Neg mg/dL (Negative) 03/07/21 Unknown Urine Ketones Neg mg/dL (Negative) 03/07/21 Unknown Urine Blood Sm (Negative) 03/07/21 Unknown Urine Nitrite Neg (Negative) 03/07/21 Unknown Urine Bilirubin Neg (Negative) 03/07/21 Unknown Urine Urobilinogen < 2.0 mg/dL (<2.0) 03/07/21 Unknown Ur Leukocyte Esterase Neg (Negative) 03/07/21 Unknown Urine WBC (Auto) 1.0 /HPF (0.0-6.0) 03/07/21 Unknown Urine RBC (Auto) 2.0 /HPF (0.0-6.0) 03/07/21 Unknown U Epithel Cells (Auto) < 1.0 /HPF (0-13.0) 03/07/21 Unknown Blood Type B POSITIVE 03/07/21 16:39 Antibody Screen Negative 03/07/21 16:39 Active Medications - Current Medications Current Medications: Generic Name Dose Route Start Last Admin Trade Name Freq PRN Reason Stop Dose Admin Acetaminophen 650 mg 03/07/21 22:30 Acetaminophen 325 Mg Tab PO Q6H PRN Pain MILD(1-3)/Fever >100.5/HOLLINS Clonidine HCl 0.1 mg 03/08/21 13:00 03/08/21 12:34 Clonidine 0.1 Mg Tab PO 0.1 mg Q12HR DEBBIE Administration Heparin Sodium (Porcine) 5,000 unit 03/08/21 06:00 03/08/21 06:45 Heparin 5,000 Unit/1 Ml Vial SUB-Q 5,000 unit Q8HR DEBBIE Administration Hydralazine HCl 20 mg 03/08/21 13:02 Hydralazine 20 Mg/1 Ml Inj IV Q4HR PRN Hypertension Nicardipine/Sodium Chloride 40 mg in 200 mls @ 25 mls/hr 03/07/21 16:40 03/08/21 00:35 Cardene Drip 40 Mg/200 Ml IV 0 mg/hr TITR DEBBIE 0 mls/hr Titration Protocol 5 MG/HR Magnesium Hydroxide 30 ml 03/07/21 22:30 Magnesium Hydroxide (Mom) Oral Liqd Udc PO Q4H PRN Constipation Morphine Sulfate 2 mg 03/07/21 22:30 Morphine 2 Mg/1 Ml Inj IV Q4H PRN Pain, Moderate (4-6) Morphine Sulfate 4 mg 03/07/21 22:30 Morphine 4 Mg/1 Ml Inj IV Q4H PRN Pain , Severe (7-10) Nifedipine 30 mg 03/08/21 10:00 03/08/21 11:43 Nifedipine Xl 30 Mg Tab PO 30 mg QDAY DEBBIE Administration Ondansetron HCl 4 mg 03/07/21 22:30 Ondansetron 4 Mg/2 Ml Inj IV Q8H PRN Nausea And Vomiting Sodium Chloride 10 ml 03/08/21 10:00 03/08/21 11:46 Sodium Chloride 0.9% 10 Ml Flush Syringe IV 10 ml BID DEBBIE Administration Sodium Chloride 10 ml 03/07/21 22:30 Sodium Chloride 0.9% 10 Ml Flush Syringe IV PRN PRN LINE FLUSH Nutrition/Malnutrition Assess - Dietary Evaluation Nutrition/Malnutrition Findings: Nutrition Notes Start: 03/08/21 11:45 Freq: Status: Active Protocol: Document 03/08/21 11:45 GB (Rec: 03/08/21 11:51 GB [id number]) Nutrition Notes Need for Assessment generated from: MD Order Initial or Follow up Brief Note Current Diagnosis Hypertension Current Diet Cardiac Labs/Tests 03/08: creatinine 1.6, glucose 102 Pertinent Medications reviewed Height 5 ft 5 in Weight 85.275 kg [place] Body Weight (kg) 61.81 BMI 31.2 Intake Prior to Admission Excellent Weight change and time frame no reported weight changes Weight Status Obese Subjective/Other Information Per chart: no medical history of diagnosis, reported to hospital r/t new work physical finding high Bp Percent of energy/protein needs met: PO intake of meals 75% or greater meets 100% of minimal estimated energy needs. Burn Absent Trauma Absent GI Symptoms None Food Allergy No Skin Integrity/Comment no complications reported Current % PO Good (75-100%) Minimum of two criteria No #1 Nutrition Diagnosis Food and nutrition-related knowledge deficit Etiology consult for nutrition education As Evidenced by Signs and Symptoms admitted for High blood pressure, conuslt for nutrition therapy educaiton Is patient on ventilator? No Is Patient Ambulatory and/or Out of Bed Yes REE-([place]. Jeor-ambulatory/OOB) [ 2242.019 [id number]] Kcal/Kg value to use for calculation 20 Approximate Energy Requirements Using 1706 kcal/Kg Calculation Used for Recommendations Kcal/kg Additional Notes Protein: 0.8-1 g/kg @ 85k -85g Fluids: 1 ml/kcal or per MD Nutrition Intervention Change Diet Order: continue Nutrition Support: n/a Add Supplement/Snack (indicate name/kcal n/a /protein ) Teaching Recipient Patient Education Handouts Provided NCM: hypertension nutrition therapy printed. Pt d/c from room before handout provided. Barriers to Learning No Barriers Goal #1 PO intake of meals to continue 75% or greater during LOS Revisit per MD consult or patient Sign Off request: Additional Comments Pt d/c'd from room before handout provided.
--- NOTE | 2021-03-08 14:56 | Ultrasound Report ---
ULTRASOUND RENAL INDICATION / CLINICAL INFORMATION: MICHEAL. COMPARISON: None available. FINDINGS: RIGHT KIDNEY: Length = 11.6 cm. - Echogenicity: Increased. - Cortical Thickness: Normal. - Hydronephrosis: None. - Cyst / Mass: None. - Stones: None seen. LEFT KIDNEY: Length = 10.6 cm. - Echogenicity: Increased. - Cortical Thickness: Normal. - Hydronephrosis: None. - Cyst / Mass: None. - Stones: None seen. URINARY BLADDER: No significant abnormality. FREE FLUID: None. ADDITIONAL FINDINGS: Incidental finding of a hyperechoic solid focus within the right hepatic lobe me asuring 1.4 x 1.9 x 1.9 cm. IMPRESSION: 1. Findings consistent with medical renal disease. 2. 1.9 cm echogenic mass seen within the right hepatic lobe. This most commonly is related to a benig n hemangioma in a non cirrhotic patient without known cancer. However, multiphase CT can be considere d for further characterization. Scribed by: Bel Sanchez RDMS, RVT Scribed: 03/08/2021 12:59 PM I have reviewed the images, agree with this report, and edited this report as needed. Signer Name: Bob Lara MD Signed: 03/08/2021 2:51 PM Workstation Name: [id number]
[2021-03-08 17:54] LABS: Creatinine,Urine 341.7 mg/dL (0.1-20.0)
[2021-03-09 04:21] VITALS: BP 151/104
[2021-03-09] MEDS: HEPARIN 5,000 UNIT/1 ML VIAL SUB-Q SCH (06:05)
[2021-03-09 06:18] LABS: Hemoglobin 18.5 gm/dl (11.8-15.2); Mean Corpuscular HGB Conc 34 % (32-34); Mean Corpuscular Volume 90 fl (84-94); Platelet Count 181 K/mm3 (140-440); Red Blood Count 6.12 M/mm3 (3.65-5.03); Red Cell Distribution Width 14.6 % (13.2-15.2)
[2021-03-09 06:35] LABS: BUN/Creatinine Ratio 12; Blood Urea Nitrogen 18 mg/dL (9-20); Hemolysis Index 37
--- NOTE | 2021-03-09 09:11 | Progress Note ---
Assessment and Plan Impression: * MICHEAL on likely CKD 2/3 * Acc HTN * Polycythemia Plan: * add hydralazine, added clonidine for bp control * heme following, needs outpatient sleep study * cr stable * can follow up in office 2 weeks after discharge * will sign off Subjective Date of service: 03/09/21 Principal diagnosis: ckd 3, HTN Interval history: labs and chart reviewed no acute events noted Objective - Vital Signs Vital signs: Vital Signs - 12hr 03/08/21 03/08/21 03/09/21 22:00 22:06 04:07 Temperature 98.1 F 98.3 F Pulse Rate 105 H 97 H 83 Respiratory 20 18 18 Rate Blood Pressure 163/108 151/104 O2 Sat by Pulse 97 96 98 Oximetry - General Appearance General appearance: well-developed, well-nourished, appears stated age EENT: PERRL, mucous membranes moist Neck: no JVD, no thyromegaly, no carotid bruit, supple Respiratory: Present: Clear to Ascultation Cardiology: regular, normal heart rate, S1S2, no murmurs Gastrointestinal: Integumentary: no rash, warm and dry Musculoskeletal: no deformities, no erythema, no cyanosis, no clubbing - Lab 03/09/21 05:04 03/09/21 05:04 Most recent lab results Calcium 9.0 mg/dL (8.4-10.2) 03/09/21 05:04 Magnesium 2.20 mg/dL (1.7-2.3) 03/07/21 16:39 Urine Creatinine 341.7 mg/dL (0.1-20.0) H 03/08/21 09:27 Urine Sodium 68 mmol/L 03/08/21 09:27 Medications & Allergies - Medications Allergies/Adverse Reactions: Allergies No Known Allergies Allergy (Verified 03/08/21 18:49) Home Medications: Home Medications Medication Instructions Recorded Confirmed Last Taken Type No Known Home Medications [No 03/08/21 03/08/21 Unknown History Reported Home Medications] Active Medications: Generic Name Dose Route Start Last Admin Trade Name Freq PRN Reason Stop Dose Admin Acetaminophen 650 mg 03/07/21 22:30 Acetaminophen 325 Mg Tab PO Q6H PRN Pain MILD(1-3)/Fever >100.5/HOLLINS Clonidine HCl 0.1 mg 03/08/21 13:00 03/08/21 21:38 Clonidine 0.1 Mg Tab PO 0.1 mg Q12HR DEBBIE Administration Heparin Sodium (Porcine) 5,000 unit 03/08/21 06:00 03/09/21 06:05 Heparin 5,000 Unit/1 Ml Vial SUB-Q 5,000 unit Q8HR DEBBIE Administration Hydralazine HCl 20 mg 03/08/21 13:02 03/08/21 15:31 Hydralazine 20 Mg/1 Ml Inj IV 20 mg Q4HR PRN Administration Hypertension Magnesium Hydroxide 30 ml 03/07/21 22:30 Magnesium Hydroxide (Mom) Oral Liqd Udc PO Q4H PRN Constipation Morphine Sulfate 2 mg 03/07/21 22:30 Morphine 2 Mg/1 Ml Inj IV Q4H PRN Pain, Moderate (4-6) Morphine Sulfate 4 mg 03/07/21 22:30 Morphine 4 Mg/1 Ml Inj IV Q4H PRN Pain , Severe (7-10) Nifedipine 60 mg 03/09/21 10:00 Nifedipine Xl 60 Mg Tab PO QDAY DEBBIE Ondansetron HCl 4 mg 03/07/21 22:30 Ondansetron 4 Mg/2 Ml Inj IV Q8H PRN Nausea And Vomiting Sodium Chloride 10 ml 03/08/21 10:00 03/08/21 21:39 Sodium Chloride 0.9% 10 Ml Flush Syringe IV 10 ml BID DEBBIE Administration Sodium Chloride 10 ml 03/07/21 22:30 Sodium Chloride 0.9% 10 Ml Flush Syringe IV PRN PRN LINE FLUSH
[2021-03-09] MEDS ORDERED: NIFEdipine XL 60 MG TAB PO SCH (10:00)
[2021-03-09] MEDS ORDERED: hydrALAZINE 25 MG TAB PO SCH (10:00)
[2021-03-09] MEDS: cloNIDine 0.1 MG TAB PO SCH (11:05)
--- NOTE | 2021-03-09 11:25 | Discharge Summary ---
Providers - Providers Date of Admission: 03/07/21 21:43 Date of discharge: 03/09/21 Attending physician: DORA GOMEZ MD 03/07/21 22:03 Consult to Dietitian/Nutrition [CONS] Routine Physician Instructions: Reason For Exam: Reason for Consult: Diet education Consult to Physician [CONS] Routine Comment: Consulting Provider: HARRY VALADEZ Physician Instructions: Reason For Exam: MICEHAL 03/08/21 00:45 Consult to Physician [CONS] Routine Comment: Consulting Provider: HARRY VALADEZ Physician Instructions: Reason For Exam: MICHEAL 03/08/21 00:46 Consult to Physician [CONS] Routine Comment: Consulting Provider: NILSON FAGAN Physician Instructions: Reason For Exam: HYPERTENSIVE EMERGENCY- ON CARDENE DRIP 03/08/21 00:50 Consult to Physician [CONS] Routine Comment: Consulting Provider: JOESPH WELCH Physician Instructions: Reason For Exam: POLYCYTHEMIA Primary care physician: [employer] Hospitalization Reason for admission: Elevated blood pressure Condition: Stable Disposition: 01 HOME / SELF CARE / HOMELESS Final 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 Assessment: Improved. Discharged with instructions to follow up with PCP, Hematology and with prescriptions for new medications. Follow up with: WINDY TREVIÑO MD [Staff Physician] - 14 Days PRIMARY CAREMD [Primary Care Provider] - 7 Days JOESPH WELCH MD [Staff Physician] - 14 Days Prescriptions: Aspirin [Adult Aspirin] 81 mg PO DAILY 90 Days #90 tablet. hydrALAZINE [Apresoline TAB] 25 mg PO Q8HR 90 Days #270 tab cloNIDine [Catapres] 0.1 mg PO Q12HR 90 Days #180 tablet NIFEdipine XL [Procardia Xl] 60 mg PO QDAY 90 Days #90 tablet
--- NOTE | 2021-03-13 14:13 | Electrocardiograph Report ---
[facility] Test Date: 2021-03-07 Test Time: 17:24:19 Pat Name: CELI PONCE Department: Room: A391 Gender: M Ctc Operator: MERRICK : 1985 Requested By: ANTWON MERA Order Number: [id number] Reading MD: Shelbie Meza Measurements Intervals [place] Rate: 77 P: 56 CA: 154 QRS: 64 QRSD: 86 T: -35 QT: 362 QTc: 410 Interpretive Statements Sinus rhythm Nonspecific T abnormalities, inferior leads No previous ECG available for comparison Electronically Signed On 03-13-2021 14:13:14 EDT by Shelbie Meza
== END 2021-03-09 14:00 | disposition home or self-care (01) | DRG 305 ==
LOC: ED 13:00 → CC1 21:43 → 3A 03-08 08:54
PROVIDERS: ADMIT Internal Medicine Geriatric Medicine; ATTEND Student in an Organized Health Care Education/Training Program
DX: I16.1 Hypertensive emergency (principal); N17.9 Acute kidney failure, unspecified; D75.1 Secondary polycythemia
CPT/HCPCS: 36415; 71046; 76770; 80048; 80053; 80076; 81001; 82570; 83735; 83880; 84300; 84484; 85014; 85018; 85025; 85027; 85610; 85730; 86850; 86900; 86901; 93005; G0378; J0360; J1644; J7030